=== PATIENT | female | born 2000 | race Caucasian/White ===

== ENCOUNTER → 2022-05-24 11:23 | Outpatient (CLI) | payer OTHER, SELFPAY ==
--- NOTE | 2022-05-24 11:29 | DI.MRI.S_ITS ---
PROCEDURE: MR KNEE RT WO CON INDICATIONS: Pain in right knee TECHNIQUE: Noncontrast sagittal PD fast spin echo and T2 fast spin echo with fat saturation, sagittal 3-D FLASH with fat saturation; coronal T1 spin echo and PD fast spin echo with fat saturation, and axial PD fast spin echo with fat saturation through the knee. COMPARISON: None. FINDINGS: Image quality: Excellent. Menisci: Suggestion of subtle oblique tear involving medial periphery of posterior horn medial meniscus extending to inferior articulating surface. Lateral meniscus is intact. The meniscal root ligaments appear intact. Cruciate ligaments: The anterior and posterior cruciate ligaments appear intact. Medial structures: Moderate grade partial thickness tear involving distal portion of medial collateral ligament near its tibial insertion is seen. The posterior oblique ligament, semimembranosus tendon insertions, oblique popliteal ligament, and meniscocapsular junction appear intact. Visualized portions of the pes anserinus tendons appear normal. No abnormal bursal fluid. Lateral structures: The lateral collateral ligament, long and short heads of the biceps femoris tendon appear intact. The popliteus tendon appears normal; the popliteofibular ligament appears intact. Iliotibial band appears normal. Anterior structures: The quadriceps and patellar tendons appear intact. Patellar alignment is normal. No femoral trochlear dysplasia or ventral trochlear prominence. No edema in the infrapatellar fat pad. Bones and cartilage: No bone marrow contusions or fractures. The cartilage of the medial and lateral femorotibial compartments, as well as the patellofemoral compartment, appears normal in thickness. Joint space: There is small amount of knee joint fluid. No Guerra's cyst. Normal appearing synovial plicae are incidentally noted. IMPRESSION: 1. Moderate to high-grade distal medial collateral ligament partial-thickness tear near its tibial insertion with extensive surrounding edema and fluid. 2. Suggestion of very subtle oblique tear involving medial periphery of posterior horn medial meniscus extending to inferior articulating surface. Lateral meniscus is intact. 3. Cruciate ligaments are intact. 4. No marrow edema. No fracture or dislocation. Small joint effusion, no gross loose bodies. Dictated by: Feng Stoddard M.D. on 05/24/2022 at 13:51 Approved by: Feng Stoddard M.D. on 05/24/2022 at 13:53
== END ==
PROVIDERS: PCP Physical Medicine & Rehabilitation Pain Medicine; Referring Provider Physical Medicine & Rehabilitation Pain Medicine; Visit Provider Physical Medicine & Rehabilitation Pain Medicine
DX: M25.561 Pain in right knee (principal); S83.411A Sprain of medial collateral ligament of right knee, initial encounter
CPT/HCPCS: 73721

== ENCOUNTER → 2022-08-23 09:58 | Outpatient (CLI) | payer OTHER, MEDICAID, SELFPAY ==
[2022-08-23 11:06] LABS: COVID19 -Nasal RAPID Negative (Negative)
== END ==
PROVIDERS: PCP Physical Medicine & Rehabilitation Pain Medicine; Referring Provider Orthopaedic Surgery; Visit Provider Orthopaedic Surgery
DX: Z20.822 Contact with and (suspected) exposure to COVID-19 (principal)
CPT/HCPCS: 87635; C9803

== ENCOUNTER 2022-08-24 11:32 | Day surgery (SDC) | payer OTHER, MEDICAID, SELFPAY ==
[2022-08-22 12:27] VITALS: BMI 22.7
[2022-08-24] VITALS (10 sets, daily range): BP systolic 95–124; BP diastolic 45–80; PULSE 57–93; RESP 10–16; TEMP 36.3–37.4; O2SAT 98–100; BMI 22.4
[2022-08-24] MEDS: LACTATED RINGERS 1,000 ML 42 ML IV (12:38)
--- NOTE | 2022-08-24 14:32 | PM.PREOP ---
Pre-operative Note Interval Note History & Physical reviewed/Exam performed by Physician: Yes Changes to H&P: No
[2022-08-24] MEDS: CEFAZOLIN 2 GM/100 ML PREMIX 100 ML IV (14:55)
--- NOTE | 2022-08-24 15:05 | SUR.OPER ---
Supine on padded OR bed, head on pillow, arms secured on padded arm boards at <90 degrees abduction, legs uncrossed, safety belt at thigh, tape over blanket over lower legs. RIGHT LEG DRAPED AND PREPPED IN FIELD. LEFT LEG SECURED WITH CLOTH TAPE.
[2022-08-24] MEDS: BUPIVACAINE 0.25% (PF) 30 ML, EPINEPHrine 0.15 MG INJ (15:21)
--- NOTE | 2022-08-24 16:04 | PM.OP.1 ---
Operative Date/Time/Diagnoses Date of procedure: 08/24/22 Time of procedure: 16:05 Pre-op diagnosis: Right knee grade 3 MCL sprain Post-op diagnosis: same Procedure & Clinicians Procedure: Right knee diagnostic arthroscopy. Right knee MCL repair, and application of internal brace Same procedure as scheduled: Yes Indications: This is a 22-year-old female who sustained a MCL sprain on her right knee playing soccer in April. She saw me in clinic and we attempted nonoperative conservative measures over the next 3 months. Unfortunately, after 12 weeks she still had subjective feelings of instability as well as pain along her MCL specifically distally where it was noted to be torn on the MRI. We discussed surgical options including but not limited to MCL repair, application of internal brace with Arthrex FiberTape suture, and a MCL reconstruction using allograft. The risks and benefits of surgery were discussed including the risk for infection, damage to internal structures, failure of surgery to provide stability, need for revision surgery and the risk of anesthesia as well as . She expressed understanding with these risks and wished to go forward with surgery. Surgeon: Hayden James Diversional Therapist: Samara Travis Anesthesia Type: General Operative Notes Findings: Tibial sided MCL sprain Closure Type: primary Specimen(s): none sent Prosthetic devices, grafts, tissues, transplants, or devices: Arthrex 4.75 SwiveLock x2 with #2 FiberTape Estimated Blood Loss (mL): 5 Tourniquet time (min): 48 Procedure in detail: Patient was seen in preoperative holding area. We again discussed the procedure and the risks. She wished to go forward with surgery. Her right lower extremity was marked with my initials. She was brought back to the operating room and transferred supine to the operating table. Antibiotics were given. She underwent general anesthesia with LMA. A nonsterile tourniquet was applied to the upper thigh. Standard prep and draping was performed. A time-out was performed and my initials were again confirmed on the right lower extremity. First a exam under anesthesia was performed demonstrating 2+ laxity in valgus stress at 30?, no laxity at 0?. Normal Jd, anterior drawer, posterior drawer and varus stress at 0 and 30?. We began with standard anteromedial and anterolateral portals. A proximal medial outlet portal was also made. Diagnostic arthroscopy was performed. This demonstrated normal patellofemoral articulation with normal cartilage. Minimal synovitis throughout. The medial and lateral meniscus appeared intact without any tearing. The meniscocapsular junction was examined thoroughly and was noted to be intact. There were no loose bodies noted throughout the knee. The cartilage of the femoral condyle and tibial plateau was also noted to be smooth and intact without any chondromalacia. Notably there was no drive-through sign on the medial side with valgus stress. After diagnostic arthroscopy was performed, instruments were removed. We then turned our attention to the medial side of the knee. A 4 cm incision was made over the pes anserine. The bursa was retracted and the sartorius, gracilis and semitendinosus tendons were noted to be intact. MCL fibers were noted to be traveling underneath the pes anserine. There was some irritation and fraying of ligament. A separate incision was made over the medial epicondyle. Dissection was brought down to bone. A 4.75 mm SwiveLock was placed just proximal to the medial epicondyle. This was inserted with a FiberTape. This was then tunneled under the skin bridge along the direction of the MCL fibers. Asymmetry was then tested at the proximal isometric point of the MCL which is anatomically 2 cm distal from the joint line. This was done by inserting a 2 mm pin and tying the FiberTape around the pin and testing it through range of motion. Once the asymmetry was confirmed to be at 2 cm and just slightly posterior along the fibers of the MCL, another SwiveLock was placed. The remaining fibers of the MCL were then pie crusted to enhance local bleeding and healing factors. The skin was then closed with 2-0 Vicryl and 3-0 Monocryl subcutaneous. Steri-Strips were placed and she was put into an Everette wrap. She was placed back into her hinged knee brace which she will remain in for the next 6 weeks. She was transported back to the postoperative recovery unit without any complications. Assisting participation: This operation could not have been safely performed (without compromising the technical results or length of the procedure) without the assistance of a skilled surgical training specialist. The surgical training specialist was medically necessary for proper positioning, retraction and manipulation of instruments, proper exposure, graft prep, and manipulation of tissue. Complications: none Post-operative Condition: stable Disposition: PACU Plan for aftercare: She will be allowed to weightbear as tolerated as long as she is in her hinged knee brace. Brace can be unlocked fully. She may take dressings off in 3 days to shower as long as she replace his dressings after incisions are completely dry. She may then take dressings completely off at the 5 day alfredo.
[2022-08-24] MEDS: HYDROMORPHONE 2 MG INJ IV ×2 (16:20→16:32)
[2022-08-24] MEDS: OXYCODONE IR 5 MG TABLET PO (16:40)
== END 2022-08-24 17:25 | disposition home or self-care (01) ==
PROVIDERS: Referring Provider Orthopaedic Surgery; Visit Provider Orthopaedic Surgery
PROC: (CPT 29870; principal; 2022-08-24 13:15)
DX: S83.411A Sprain of medial collateral ligament of right knee, initial encounter (principal); Y93.66 Activity, soccer
CPT/HCPCS: 27405; 81025; J0171; J0690; J1170; J2250; J2704; J3010